=== PATIENT | female | born 2000 | race Caucasian/White ===

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

== ENCOUNTER 2024-08-28 00:43 | Inpatient (IN) ==
[2024-08-28] MEDS ORDERED: LIDOCAINE 1% LOCAL 20 ML VIAL INFIL PRN (01:22)
[2024-08-28] MEDS ORDERED: OXYTOCIN 30 UNITS/NSS 30 UNITS/500 ML BAG IV PRN ×2 (01:22→03:21)
[2024-08-28] MEDS ORDERED: LACTATED RINGER'S 1,000 ML IV PRN (01:22)
[2024-08-28] MEDS ORDERED: HYDROCORTISONE ACETATE 25 MG SUPP PR PRN (03:21)
--- NOTE | 2024-08-28 03:21 | Delivery Summary ---
Vaginal Delivery Summary Date of Service August 28, 2024 Vaginal Delivery Summary and 2nd Degree LAC Patient progressed to 10 stages dilated 100% effaced +2 station pushed intact perineum with epidural anesthesia delivered with viable with weight and Apgars pending. Head delivered without difficulty quickly followed by shoulders and body. was noted to be vigorous upon delivery and a 1 minute delayed cord clamping was initiated. Cord was then double clamped and cut remained on maternal abdomen. Cord blood obtained and attention turned deliver the placenta was delivered intact three-vessel cord gentle cord traction. Inspection of perineum vagina cervix there is noted to be a second-degree perineal laceration. The perineal laceration was repaired with 3-0 Vicryl continuous running stitch in a standard crown fashion. Both mother and stable in the immediate post delivery timeframe. Needle sponge and instrument counts correct at the completion of the case. No complications noted and blood loss per QBL. [facility] Vaginal Delivery Charge Delivery Type Details: and 2nd Degree LAC
[2024-08-28] MEDS: DIPHTHER/TETAN/PERTUS Vaccine (Tdap, Adol/Adult) 0.5mL IM ONE (04:39)
[2024-08-28] MEDS: OXYTOCIN 10 UNITS/ML VIAL ONE (04:58)
[2024-08-28] MEDS: BENZOCAINE 20% SPRY 85 APPLN/85 GM CAN EXT PRN (04:58)
[2024-08-28] MEDS: OXYTOCIN 10 UNITS/ML 10ML VIAL IM ONE (05:00)
[2024-08-28] MEDS: IBUPROFEN 600 MG TAB PO PRN (05:00)
[2024-08-28 06:56] LABS: Hematocrit (blood only) 38.5 % (37.0-47.0); Hemoglobin 13.5 g/dl (12.0-16.0); Mean Corpuscular Hemoglobin 31.5 pg (25.0-34.0); Mean Corpuscular Hgb Conc 35.1 g/dL (32.0-36.0); Platelet Count 272 K/uL (130-400); RDW Coefficient of Variation 12.5 % (11.5-14.5); RDW Standard Deviation 40.7 fL (36.4-46.3); Red Blood Count 4.28 M/uL (4.20-5.40); White Blood Count 30.09 K/ul (4.8-10.8)
[2024-08-28] MEDS: FERROUS SULFATE 325 MG TAB PO SCH (08:12)
[2024-08-28] MEDS: DOCUSATE SODIUM 100 MG CAP PO SCH (08:13)
[2024-08-28] MEDS: PRENATAL VITAMIN 1 TAB PO SCH (08:13)
--- NOTE | 2024-08-28 17:59 | Ultrasound Report ---
EXAM: US Duplex Left Lower Extremity Veins INDICATION: Pain. TECHNIQUE: Real-time duplex ultrasound scan of the left lower extremity veins integrating B-mode two-dimensional vascular structure, Doppler spectral analysis, color flow Doppler imaging and compression. COMPARISON: No relevant prior studies available. FINDINGS: Deep veins: Duplicated femoral vein. No DVT in the visualized common femoral, femoral or popliteal veins. The veins demonstrate normal color flow, are normally compressible, with normal phasic flow and/or augmentation response. Superficial veins: No abnormality noted. No thrombus in the visualized great saphenous vein. Soft tissues: No abnormality noted. IMPRESSION: No deep venous thrombosis of the left lower extremity. ACT 112: N/A Electronically signed by Deb Nava 08-28-2024 5:57 PM
[2024-08-28] MEDS: ACETAMINOPHEN 325 MG TAB PO PRN (20:33)
--- NOTE | 2024-08-29 06:40 | Obstetrical Progress Note ---
Date of Service <Raghavendra Michaud MD - Last Filed: 08/29/24 07:58> August 29, 2024 Assessment & Plan <Raghavendra Michaud MD - Last Filed: 08/29/24 07:58> (1) care and examination: PPD#1 s/p at 37+ wga: Stable. Rh+, gbs neg, ri, vitals wnl AM labs pending - check for downtrending WBC count Calf pain was likely msk, LE doppler US negative Continue routine care, ambulation, diet as tolerated DC today <Susan Kelley MD, FACOG - Last Filed: 08/29/24 08:02> (1) care and examination: Subjective <Raghvaendra Michaud MD - Last Filed: 08/29/24 07:58> Patient is a 24yo who is PPD#1 following / delivery at 37 2/7 weeks. Abd pain/cramping - mild, well managed on analgesics Voiding w/o issue Tolerating meals Ambulating normally +passing gas, no BM yet Having appropriate lochia Planning to breastfeed. Reports pain in calves yesterday spread to whole body, and now resolved Constitutional: no fever, no chills or no sweats Respiratory: no dyspnea Cardiovascular: no chest pain, no palpitations or no calf pain Breast: no breast pain Gastrointestinal: no nausea or no vomiting Genitourinary (female): no dysuria Neurologic: no headache(s) no changes in vision, no headaches Physical Exam <Raghavendra Michaud MD - Last Filed: 08/29/24 07:58> General: Alert, oriented. No acute distress. Cardiac: Regular rate and rhythm, no murmurs, rubs, or gallops. Respiratory: Clear to auscultation bilaterally. No increased work of breathing. Symmetrical chest rise. No respiratory distress. Abdomen: Soft, nontender, nondistended. Bowel sounds present. Uterus: Uterine fundus firm, nontender, palpable 1 cm below the umbilicus. Lower extremities: No lower extremity edema or swelling. No deep calf pain. Results & Data <Raghavendra Michaud MD - Last Filed: 08/29/24 07:58> Vital Signs (Past 12 Hours) Vital Signs Temp Pulse Resp BP 08/29/24 00:00 36.5 C 83 18 117/70 08/28/24 20:00 36.6 C 72 16 131/73 Laboratory Results 08/28/24 06:15 Supervising Physician <Susan Kelley MD, FACOG - Last Filed: 08/29/24 08:02> Co-Signing Physician Notes Resident Physician Supervision Note: I interviewed and examined the patient. Discussed with Dr. Michaud and agree with findings and plan as documented in the note. Any exceptions or clarifications are listed here: Doing well and feeling well. Exam benign. no s/s of infection, vitals stable, cbc pending. Patient desires d/c today. Instructions given. f/u in 6 weeks. Documented By: Susan Kelley MD, FACOG Resident Activity Tracking <Raghavendra Michaud MD - Last Filed: 08/29/24 07:58> Resident Involvement: Resident Care Provided Care Provided: Adult Hospital Medicine
[2024-08-29 08:11] LABS: Basophils # (auto) 0.05 K/uL (0.00-0.20); Basophils % (auto) 0.3 %; Eosinophils # (auto) 0.26 K/uL (0.00-0.50); Eosinophils % (auto) 1.5 %; Hematocrit (blood only) 33.1 % (37.0-47.0); Hemoglobin 11.4 g/dl (12.0-16.0); Immature Granulocytes # (auto) 0.29 K/uL (0.01-0.20); Immature Granulocytes % (auto) 1.7 %; Lymphocytes # (auto) 2.62 K/uL (1.20-3.40); Lymphocytes % (auto) 15.3 %; Mean Corpuscular Hemoglobin 31.6 pg (25.0-34.0); Mean Corpuscular Hgb Conc 34.4 g/dL (32.0-36.0); Mean Corpuscular Volume 91.7 fL (80.0-100.0); Mean Platelet Volume 10.8 fL (9.4-12.4); Monocytes # (auto) 1.24 K/uL (0.11-0.59); Monocytes % (auto) 7.2 %; Platelet Count 188 K/uL (130-400); RDW Coefficient of Variation 12.7 % (11.5-14.5); RDW Standard Deviation 42.2 fL (36.4-46.3); Red Blood Count 3.61 M/uL (4.20-5.40); White Blood Count 17.16 K/ul (4.8-10.8)
[2024-08-29] MEDS: bisacodyL 5 MG TABEC PO SCH (20:23)
[2024-08-29 22:18] VITALS: RESP 18
[2024-08-30] MEDS ORDERED: bisacodyL 10 MG SUPP PR PRN (03:21)
[2024-08-30 03:44] VITALS: O2SAT 97
[2024-08-30 08:29] VITALS: BP 102/66; PULSE 80; TEMP 97.9
--- NOTE | 2024-08-30 08:47 | Obstetrical Progress Note ---
Date of Service August 30, 2024 Assessment & Plan (1) care and examination: satisfactory course will discharge today when baby ready to be discharged follow up in 6 weeks Subjective Ambulation: ambulating normally Voiding: no voiding problems Passing Gas:: Yes Diet Tolerance:: regular diet Lochia:: Small Feeding Type:: breast feeding stayed overnight because of issues which now have been resolved Review of Systems All systems reviewed & are unremarkable except as noted in HPI & below Physical Exam Constitutional WD/WN, vitals as above Psychiatric A+Ox3, euthymic affect Genitourinary OB Exam Abdomen: + fundal height Fundus: + firm and + relation to umbilicus (1 below U) Results & Data Vital Signs (Past 12 Hours) Vital Signs Temp Pulse Resp BP Pulse Ox O2 Del Method 08/30/24 07:25 97.9 F 80 18 102/66 Room Air 08/30/24 03:00 97.7 F 74 18 101/66 97 Room Air
== END 2024-08-30 14:00 | disposition home or self-care (01) | DRG 807 ==
LOC: OPB 00:43 → 4S1 00:50 → 4E2 06:00